=== PATIENT | female | born 1985 | race Caucasian/White ===

== ENCOUNTER 2016-06-05 09:25 | Inpatient (IN) ==
[2016-06-05] MEDS ORDERED: ONDANSETRON 4 MG/2 ML VIAL IV STA (10:53)
[2016-06-05] MEDS ORDERED: PANTOPRAZOLE 40 MG VIAL IV STA (10:53)
[2016-06-05] MEDS ORDERED: HYDROmorphone 2 MG/1 ML VIAL IV STA (10:53)
[2016-06-05] MEDS ORDERED: SODIUM CHLORIDE 0.9% 1,000 ML IV STA (10:53)
[2016-06-05] MEDS ORDERED: PANTOPRAZOLE 40 MG VIAL IV ONE (11:11)
[2016-06-05] MEDS ORDERED: ONDANSETRON 4 MG/2 ML VIAL ONE (11:11)
[2016-06-05] MEDS ORDERED: HYDROmorphone 2 MG/1 ML VIAL ONE (11:11)
--- NOTE | 2016-06-05 11:12 | Emergency Department Note ---
Mary Suarez Brittany, am scribing for, and in the presence of, Eduardo Mann MD 11:02. Mackenzie Suarez Charles R, MD, personally performed the services described in this documentation, ascribed by Heather Hernandez in my presence, and it is both accurate and complete . Arrival - Arrival Chief Complaint: Abdominal / Flank Pain Stated Complaint: SEVERE STOMACH CRAMPS, DIZZY,VOMITING, BLEEDING ED Nursing Triage Note: c/o n/v/d onset last night. +abd cramping. also bloody diarrhea. Mode of Arrival: Ambulatory Limitations: No Limitations Source: Patient Time Seen by Provider: 06/05/16 10:35 - History of Present Illness HPI Narrative: This is a 31 y/o white female,who presents to the ED with c/po severe abd cramping which started last night. She states she has had at least 20 BM since last night. She has vomited as well. She noticed bright red blood in her stool as well. She states this has never happened before. She denies any fever or body aches. She denies any Hx of abd problems such as colitis or hemorrhoids. She states she does not take any blood thinners or anti-inflammatories. Pt has no other complaints/pain in the ED at this time. Pt has a PMHx of HTN, dyslipidemia, and GERD. Pt denies a surgical Hx. Pt denies a family medical Hx. Onset (ago): hour(s) (Started last night) Consistency: constant Severity: severe Date of Last Menstrual Period: hyst Allergies/Adverse Reactions: Allergies Allergy/AdvReac Type Severity Reaction Status Date / Time Sulfa (Sulfonamide Allergy Unknown/Unable Verified 06/05/16 09:31 Antibiotics) to obtain Home Medications: Home Medications Medication Instructions Recorded Confirmed Type Fenofibrate Nanocrystallized 48 mg PO DAILY 06/05/16 06/05/16 History [Fenofibrate] Lansoprazole [Prevacid] 15 mg PO DAILY 06/05/16 06/05/16 History Levomilnacipran Hydrochloride 40 mg PO DAILY 06/05/16 06/05/16 History [Fetzima] Lisinopril [Prinivil] 10 mg PO DAILY 06/05/16 06/05/16 History Review of System - Review of System 12 point system: reviewed and no additional remarkable complaints except as stated - Review of System Constitutional: Absent: fever Gastrointestinal: Present: abdominal pain, nausea, vomiting, diarrhea, hematochezia Medical,Surgical,& Family Hx - Medical History Cardio: History of: Hypertension Endocrine: History of: Dyslipidemia Gastrointestinal: History of: GERD - Social History Smoking Status: Smoker, status unknown Frequency of Alcohol Use: None Type of Drug Use: None Exam Vital Signs: Vital Signs Temperature 97.3 F L 06/05/16 09:29 Pulse Rate 96 H 06/05/16 09:29 Respiratory Rate 18 06/05/16 09:29 Blood Pressure 138/99 06/05/16 09:29 O2 Sat by Pulse Oximetry 98 06/05/16 09:29 - General General appearance: alert, in no apparent distress - Head Head exam: Present: atraumatic, normocephalic, normal inspection - Eye Eye exam: Present: normal appearance, PERRL, EOMI - ENT ENT exam: Present: normal exam, normal oropharynx, mucous membranes moist - Neck Neck exam: Present: normal inspection, full ROM, trachea midline. Absent: tenderness, thyromegaly - Chest Chest inspection: Present: normal inspection, symmetric chest wall rise. Absent : tenderness, abscess - Respiratory Respiratory exam: Present: normal lung sounds bilaterally. Absent: rales, respiratory distress, rhonchi, stridor, wheezes - Cardiovascular Cardiovascular exam: Present: tachycardia, normal heart sounds - Abdominal Exam Abdominal exam: Present: soft, tenderness (Diffuse abd tenderness, more so on the left side), hyperactive bowel sounds. Absent: distention, guarding, rebound , rigidity - Rectal Exam Rectal exam: Present: heme (+) stool - Extremities Exam Extremities exam: Present: normal inspection, full ROM, normal capillary refill. Absent: tenderness, pedal edema, calf tenderness - Back Exam Back exam: Present: normal inspection, full ROM. Absent: tenderness, muscle spasm, rashes - Neurological Exam Neurological exam: Present: alert, oriented X3, CN II-XII intact - Psychiatric Psychiatric exam: Present: normal affect, normal mood. Absent: agitated, anxious - Skin Skin exam: Present: warm, intact, normal color. Absent: diaphoresis Course - Consultations Consultation #1: Hospitalist will admit patient Time: 13:37 Results - Labs CBC & BMP: 06/05/16 10:51 06/05/16 Unknown - Diagnostic Findings Procedure: Abdominal x-ray: report reviewed by me (1. Minimal reactive bowel in the right upper quadrant no other abnormalities are clearly delineated. ), CT Abdomen and Pelvis: report reviewed by me (1. Moderate colitis involving a relatively long segment of the colon beginning at the mid transverse colon and extending to the junction between the descending and rectosigmoid segemtn. No diverticulosisfree fluid or free air. Differential is infection versus inflammatory bowel disease. 2. Scattered hypondensitites within the spleen, likely hemangiomata. ) Disposition Clinical Impression: Gastroenteritis, Colitis, GI bleed, Abdominal pain Case discussed with: patient, patient's family Disposition: Still a Patient Condition: Stable Time of Disposition: 13:38
[2016-06-05 11:21] LABS: Apearance,Urine Slightly Hazy (Clear); Bacteria,Urine Many /HPF (Few); Bilirubin,Urine Negative (Negative); Blood, Urine Negative (Negative); Glucose,Urine (UA) Negative (Negative); Ketones,Urine Negative (Negative); Mucus,Urine Occasional /LPF (Occasional); Nitrite,Urine Negative (Negative); Protein,Urine Negative; RBC,Urine <1 /HPF (0-4); Squamous Epithelial Cell,Urine Occasional /HPF (0-10); Urine Color Yellow (Yellow); Urine Specific Gravity 1.017 (1.001-1.035); Urine Urobilinogen < 2.0 EU/DL (0.2-1.0); WBC,Urine 1 /HPF (0-6)
[2016-06-05 11:36] LABS: Basophils # 0.1 10*3/uL (0.0-0.2); Basophils % 0.4 % (0.0-0.8); Eosinophils # 0.1 10*3/uL (0.0-0.87); Eosinophils % 0.8 % (0.00-10.9); Hematocrit 41.3 VOL% (35.7-47.0); Hemoglobin 13.2 GM/DL (12.0-16.0); Immature Granulocytes % 0.5 %; Immature Granulocytes Absolute 0.07 #; Lymphocytes # 2.1 10*3/uL (1.4-4.0); Lymphocytes % 15.8 % (21.3-54.2); Mean Corpuscular Hemoglobin 28 PG (27-34); Mean Corpuscular Volume 87.5 FL (87-102); Mean Platelet Volume 11.6 FL (9.6-12.0); Monocytes # 0.7 10*3/uL (0.11-0.8); Monocytes % 5.1 % (1.7-12.7); Neutrophils # 10.2 10*3/uL (1.4-7.4); Neutrophils % 77.4 % (38.7-73.9); Platelet Count 239 10*3/uL (130-400); Red Blood Count 4.72 10*6/uL (3.8-5.5); White Blood Count 13.2 10*3/uL (4.5-13.71)
--- NOTE | 2016-06-05 11:48 | CT Report ---
CT abdomen pelvis w con Indication: Abdominal and pelvic pain. CT ABDOMEN AND PELVIS WITH CONTRAST DLP: 2378 mGy*cm Comparison: None Technique: Axial CT images of the abdomen and pelvis were obtained with IV contrast; Omnipaque 350, 100 cc. Oral contrast was not administered. Abdomen: Mild inflammation tracks along the colon from the midtransverse segment through the transition between the descending and rectosigmoid segment. The segment of colon is mildly thickwalled appearing, edematous, and decompressed. Downstream, the rectosigmoid colon is decompressed but appears unremarkable. Upstream, the cecum and ascending colon are unremarkable as well. No small bowel dilatation present. No free fluid, free air or lymphadenopathy. The heart size is normal. Liver, gallbladder, pancreas, adrenal glands and kidneys are within normal limits. There are some scattered hypodensities within the spleen that are difficult to further characterize but wash-in on delayed imaging. Suspect hemangioma. Dependent atelectasis involves the lung bases. Pelvis: Urinary bladder is contracted. Uterus and adnexal structures appear surgically absent. As stated above, rectosigmoid colon is unremarkable. Impression: 1. Moderate colitis involving a relatively long segment of the colon beginning at the mid transverse colon and extending to the junction between the descending and rectosigmoid segment. No diverticulosis, free fluid or free air. Differential is infection versus inflammatory bowel disease. 2. Scattered hypodensities within the spleen, likely hemangiomata. PROCEDURE INTERPRETED AT [facility] DEPARTMENT OF RADIOLOGY Final Report Signed by: Travis Melendez M.D.
[2016-06-05 12:13] LABS: Lactic Acid 1.3 MMOL/L (0.4-2.0)
[2016-06-05 12:15] LABS: Alanine Aminotransferase 32 U/L (13-56); Albumin 3.9 G/DL (3.4-5.0); Alkaline Phosphatase 57 U/L (45-117); Amylase 26 U/L (25-115); Aspartate Amino Transferase 18 U/L (0-37); Blood Urea Nitrogen 9 MG/DL (7-18); Calcium 9.3 MG/DL (8.5-10.1); Glucose 90 MG/DL (74-106); Magnesium 2.1 MG/DL (1.8-2.4); Osmolality,Calculated 279.3 MOS/KG (273-304); Potassium 3.7 MMOL/L (3.5-5.1); Sodium 141 MMOL/L (136-145); Total Protein 7.6 G/DL (6.4-8.3); Troponin I Only < 0.015 NG/ML (0.00-0.045)
--- NOTE | 2016-06-05 12:59 | XRay Report ---
Exam: XR abdomen 2V Date: 06/05/2016 10:54 AM Indication: Abdominal pain Comparison: None Technical:Supine and erect imaging post CT imaging Findings: The liver shadow is unremarkable. The spleen shadow is faintly seen. The kidneys reveal normal excretion. A nonspecific GI pattern is present. A few dilated loops of bowel are present right upper quadrant. Contrast is present in the bladder. The bony structures are unremarkable. Impression: 1. Minimal reactive bowel in the right upper quadrant no other abnormalities are clearly delineated. PROCEDURE INTERPRETED AT [facility] DEPARTMENT OF RADIOLOGY Final Report Signed by: Dr. Jose Finney
[2016-06-05] MEDS ORDERED: metroNIDAZOLE INJ 500 MG in PREMIX 1 EACH IV STA (13:41)
[2016-06-05] MEDS ORDERED: CIPROFLOXACIN INJ 400 MG in PREMIX 1 EACH IV STA (13:41)
[2016-06-05] MEDS ORDERED: ONDANSETRON 4 MG/2 ML VIAL IV PRN (14:22)
[2016-06-05] MEDS ORDERED: MORPHINE 2 MG/1 ML SYRINGE IV PRN (14:22)
[2016-06-05] MEDS ORDERED: ZALEPLON 5 MG CAPSULE PO PRN (14:22)
[2016-06-05] MEDS ORDERED: MAGNESIUM SULF RIDER 2 GM in PREMIX 1 EACH IV PRN (14:22)
[2016-06-05] MEDS ORDERED: POTASSIUM CHLORIDE RIDER 10 MEQ in PREMIX 1 EACH IV PRN (14:22)
[2016-06-05] MEDS ORDERED: ACETAMINOPHEN 325 MG TABLET PO PRN (14:22)
[2016-06-05] MEDS ORDERED: MAGNESIUM SULF RIDER 4 GM in PREMIX 1 EACH IV PRN (14:22)
--- NOTE | 2016-06-05 14:31 | Hospitalist History & Physical ---
Assessment and Plan (1) Colitis Status: Acute Assessment and plan: Start Cipro and Flagyl. GI consult. Aggressive fluid hydration. Stool cultures and stool studies including C. difficile. Infection versus inflammatory bowel disease. CT scan abdomen and pelvis reviewed. Current Visit: Yes (2) GI bleed Status: Acute Assessment and plan: Due to colitis. Monitor H&H. Repeat CBC in a.m. Start antibiotics. GI consult. Current Visit: Yes Qualifiers: GI bleed type/associated pathology: unspecified gastrointestinal hemorrhage type Qualified Code(s): K92.2 - Gastrointestinal hemorrhage, unspecified (3) Abdominal pain Status: Acute Current Visit: Yes History of Present Illness Chief complaint: abdominal pain, bloody diarrhea History of present illness: Ms. Posey is a 31 year old female that presented to the emergency department company by her with a one-day history of abdominal pain and diarrhea with blood. The patient's symptoms began yesterday afternoon after having dinner at a local restaurant. She reports feeling cramping abdominal pain with cold sweats. She became nauseous and started vomiting followed by diarrhea. This persisted for several hours. Last night she began having blood in her stools. She reports bright red blood per rectum. Small amounts of blood approximately a handful each time. She reports having 20 bowel movements since 10 p.m. last night. This is never happened to her before. She denies any fever or chills with the exception of the one episode of facial flushing and sweating that preceded her nausea and vomiting episode. She still has a cramping lower abdominal pain worse in the left lower quadrant and below her umbilicus. No sick contacts. Her ate dinner with her at the same restaurant and ate similar food and did not suffer any of the same symptoms. She denies any history of colitis or inflammatory bowel disease. She has never had a colonoscopy. Home Medications Medication Instructions Recorded Confirmed Type Fenofibrate Nanocrystallized 48 mg PO DAILY 06/05/16 06/05/16 History [Fenofibrate] Lansoprazole [Prevacid] 15 mg PO DAILY 06/05/16 06/05/16 History Levomilnacipran Hydrochloride 40 mg PO DAILY 06/05/16 06/05/16 History [Fetzima] Lisinopril [Prinivil] 10 mg PO DAILY 01/16/17 01/16/17 History Allergies Allergy/AdvReac Type Severity Reaction Status Date / Time Sulfa (Sulfonamide Allergy Unknown/Unable Verified 06/05/16 09:31 Antibiotics) to obtain Medical,Surgical,& Family Hx - Medical History Cardio: History of: Hypertension Psychological: History of: Depression Endocrine: History of: Dyslipidemia Gastrointestinal: History of: GERD - Surgical History HEENT Surgeries: Surgical HX of: Thyroid Surgery Reproductive Surgeries: Surgical HX of;: Hysterectomy - Family History Family History: Reports;: Family Hypertension - Social History Smoking Status: Current every day smoker Have you smoked in the last 12 months: Yes Time spent discussing smoking cessation with patient: more than 10 minutes Frequency of Alcohol Use: Rarely Type of Drug Use: None Marital Status: Lives With:: Spouse Functional capacity: independent ambulation 12 point system: reviewed and no additional remarkable complaints except as stated - Constitutional Constitutional: Present: as per HPI - Gastrointestinal Gastrointestinal: Present: abdominal pain, cramping, diarrhea, hematochezia, nausea, vomiting Exam - Constitutional Vitals: Period Temp Pulse Resp BP Sys/Johnson Pulse Ox Last 24 Hr 97.3 F 96 18 138/99 98 General appearance: no acute distress, over weight - Head Head exam: Present: normal inspection, normocephalic, atraumatic - Eye Eye exam: Present: EOMI - ENT ENT exam: Present: normal exam, normal oropharynx - Neck Neck exam: Present: normal inspection - Respiratory Respiratory exam: Present: clear to auscultation bilaterally - Cardiovascular Cardiovascular exam: Present: regular rate and rhythm - GI/Abdominal GI/Abdominal exam: Present: normal bowel sounds, tenderness (worse in the left lower quadrant.), soft. Absent: guarding, rebound - Extremities Exam Extremities exam: Present: normal inspection, full ROM. Absent: calf tenderness , edema - Neurological Exam Neurological exam: Present: alert, oriented X3 - Psychiatric Psychiatric exam: Present: normal affect, normal mood - Skin Skin exam: Present: normal color, warm, dry Results - Labs CBC & BMP: 06/05/16 10:51 06/05/16 Unknown Lab Results: I have reviewed the past 24 hour labs - Diagnostic Findings Procedure: CT Abdomen and Pelvis: report reviewed by me Quality Measures - VTE Contraindication to Pharmacological VTE Prophylaxis: Active Bleeding
[2016-06-05] MEDS ORDERED: CIPROFLOXACIN 400 MG/200 ML PREMIX IV ONE (15:03)
[2016-06-05] MEDS: CIPROFLOXACIN INJ 400 MG in PREMIX 1 EACH IV SCH (16:35)
[2016-06-05] MEDS: metroNIDAZOLE INJ 500 MG in PREMIX 1 EACH IV SCH ×2 (16:50→20:14)
[2016-06-05] MEDS: DEXTROSE 5% NACL 0.45% 1,000 ML IV SCH (16:50)
--- NOTE | 2016-06-05 17:30 | Gastrointestinal Consult Note ---
Assessment and Plan (1) Colitis Status: Acute Assessment and plan: Based on the CT scan findings and the elevated white blood cell count I suspect this patient has a underlying infectious colitis. This is her first episode at age 31 and immediately following ingestion of suspect food from a local restaurant. The nausea vomiting and diarrhea are classic for food poisoning, I suspect Salmonella or Shigella, the stool cultures are pending at this point although they may run compromised by the use of antibiotics prior to obtaining the specimen. The patient is already receiving antibiotics and I suspect she will do fine on these. We will continue to observe her over the next 24-48 hours and hopefully she can be released on oral antibiotics if she does well with the clear liquid diet. Would hesitate to start this patient on a lactose containing diet instead advance her from clears directly to lactose-free diet as tolerated. Current Visit: Yes (2) Rectal bleeding Status: Acute Assessment and plan: Again I suspect infectious colitis as the cause for this patient's elevated white count, CT scan findings, diarrhea and nausea/vomiting/abdominal pain. We need to continue to monitor the patient's white blood cell count and see how she does on a clear liquid diet over the next 24-48 hours. She might be able to be discharged if she is tolerating by mouth adequately and her symptoms defervesce with antibiotic therapy. Current Visit: Yes (3) Nausea vomiting and diarrhea Status: Acute Assessment and plan: See above. This appears to be classic food poisoning. Current Visit: Yes History of Present Illness Chief complaint: Probable infectious colitis History of present illness: Ms. 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 She had sushi as well as some steak and finished eating approximately 6 p.m. at approximately 7 p.m. she started having violent nausea and vomiting, sweats, chills and fever, with the initiation of some 20 bowel movements a 24 hour period many of these becoming bloody. This was cramping through her bilateral lower quadrants mostly in the left lower abdomen. She was not having any hematemesis. She drinks city water and does not have any amphibian's reptiles as pets. She has not had any recent travel. We else at the restaurant became sick as she did. Her white blood cell count is mildly elevated at 13.2. Her stools are being checked currently for standard stool cultures. She was given an initial dose of Cipro and Flagyl that is now on the Cipro exclusively/appropriately. I suspect she may have Salmonella or Shigella. CT scan does show which appears to be affecting mainly transverse and down to the descending and rectosigmoid region. Stools are now frankly bloody mucus only. She denies a family history of inflammatory bowel disease. She is outside of the usual range for contraction of this disorder. Although she does smoke occasionally presents one quarter to half pack per day but does not take any control pills or any other agents that would be procoagulants. Home Medications Medication Instructions Recorded Confirmed Type Fenofibrate Nanocrystallized 48 mg PO DAILY 06/05/16 06/05/16 History [Fenofibrate] Lansoprazole [Prevacid] 15 mg PO DAILY 06/05/16 06/05/16 History Levomilnacipran Hydrochloride 40 mg PO DAILY 06/05/16 06/05/16 History [Fetzima] Lisinopril [Prinivil] 10 mg PO DAILY 06/05/16 06/05/16 History Allergies Allergy/AdvReac Type Severity Reaction Status Date / Time Sulfa (Sulfonamide Allergy Unknown/Unable Verified 06/05/16 09:31 Antibiotics) to obtain Medical,Surgical,& Family Hx - Medical History Cardio: History of: Hypertension Psychological: History of: Depression Endocrine: History of: Dyslipidemia Gastrointestinal: History of: GERD - Surgical History HEENT Surgeries: Surgical HX of: Thyroid Surgery Reproductive Surgeries: Surgical HX of;: Hysterectomy - Family History Family History: Reports;: Family Hypertension - Social History Smoking Status: Current every day smoker Frequency of Alcohol Use: Rarely Type of Drug Use: None Review of systems: Constitutional: Admits to recent fever, chills, nausea, and vomiting Eyes: Denies dry eyes, and scleral icterus HENT: Denies headaches Cardiovascular: Denies acute chest pain and claudication Respiratory: Denies shortness of breath, wheezing, and difficulty breathing, denies cough Gastrointestinal: As noted in the HPI Genitourinary: Denies dysuria and hematuria Neurologic: Denies vision loss, and loss of sensation Musculoskeletal: Denies joint swelling, joint stiffness, and muscular weakness Psychiatric: The patient admits to depression and is on antidepressants but denies damian symptoms Heme-Lymph: Denies easy bruising, lymph node enlargement or tenderness, night sweats, excessive bleeding Allergies-immunologic: Denies pruritus and rhinorrhea Exam - Constitutional Vitals: Period Temp Pulse Resp BP Sys/Johnson Pulse Ox Last 24 Hr 80 16 115/76 98 General appearance: mild distress - Eye Eye exam: Present: EOMI Pupils: Present: GABY - Respiratory Respiratory exam: Present: clear to auscultation bilaterally. Absent: rhonchi, stridor, wheezes - Cardiovascular Cardiovascular exam: Present: regular rate and rhythm. Absent: bradycardia - GI/Abdominal GI/Abdominal exam: Present: normal bowel sounds, tenderness (bilateral lower quadrant left greater than right), soft. Absent: distended, guarding, rebound - Extremities Exam Extremities exam: Present: normal inspection. Absent: edema - Neurological Exam Neurological exam: Present: alert, oriented X3, CN II-XII intact. Absent: altered, motor sensory deficit - Psychiatric Psychiatric exam: Present: normal affect, normal mood - Skin Skin exam: Present: warm Results - Labs CBC & BMP: 06/05/16 10:51 06/05/16 Unknown Quality Measures - VTE Contraindication to Pharmacological VTE Prophylaxis: Active Bleeding
[2016-06-06] MEDS: CIPROFLOXACIN INJ 400 MG in PREMIX 1 EACH IV SCH (01:38)
[2016-06-06] MEDS: metroNIDAZOLE INJ 500 MG in PREMIX 1 EACH IV SCH ×2 (01:39→08:30)
[2016-06-06] MEDS: DEXTROSE 5% NACL 0.45% 1,000 ML IV SCH ×3 (01:40→23:46)
[2016-06-06 06:39] LABS: Basophils # 0.1 10*3/uL (0.0-0.2); Basophils % 0.5 % (0.0-0.8); Eosinophils # 0.1 10*3/uL (0.0-0.87); Eosinophils % 1.4 % (0.00-10.9); Hematocrit 37.5 VOL% (35.7-47.0); Immature Granulocytes % 0.5 %; Immature Granulocytes Absolute 0.05 #; Lymphocytes % 19.6 % (21.3-54.2); Mean Corpuscular Hemoglobin 28 PG (27-34); Mean Corpuscular Volume 87.8 FL (87-102); Mean Platelet Volume 11.3 FL (9.6-12.0); Monocytes # 0.6 10*3/uL (0.11-0.8); Monocytes % 5.8 % (1.7-12.7); Neutrophils # 7.2 10*3/uL (1.4-7.4); Neutrophils % 72.2 % (38.7-73.9); Platelet Count 205 10*3/uL (130-400); Red Blood Count 4.27 10*6/uL (3.8-5.5)
[2016-06-06 07:08] LABS: Calcium 8.5 MG/DL (8.5-10.1); Potassium 3.9 MMOL/L (3.5-5.1)
--- NOTE | 2016-06-06 07:34 | Hospitalist Progress Note ---
Assessment and Plan (1) Colitis Status: Acute Assessment and plan: On ciprofloxacin and metronidazole Current Visit: Yes Hospitalist: Subjective Interval history: 31 yo female presenting with hematochezia with abdominal cramping with CT abdomen demonstrating diffuse inflammatory changes beginning in the transverse colon and extending to area of the rectosigmoid. Stool with WBC and negative C difficile. Still with liquid bowel movements with blood and cramping predominately left lower quadrant pain. Afebrile overnight. Exam - Constitutional Vitals: Period Temp Pulse Resp BP Sys/Johnson Pulse Ox Last 24 Hr 97 F-99.8 F 75-84 16-19 115-120/57-76 95-100 General appearance: over weight - Respiratory Respiratory exam: Present: clear to auscultation bilaterally. Absent: rales, rhonchi, wheezes - Cardiovascular Cardiovascular exam: Present: regular rate and rhythm - GI/Abdominal GI/Abdominal exam: Present: hypoactive bowel sounds, tenderness. Absent: rebound - Extremities Exam Extremities exam: Absent: edema - Neurological Exam Neurological exam: Present: alert, oriented X3 Results - Labs CBC & BMP: 06/06/16 06:05 06/06/16 06:05 Quality Measures - VTE Contraindication to Pharmacological VTE Prophylaxis: Active Bleeding
[2016-06-06] MEDS: PANTOPRAZOLE 40 MG TABLET PO SCH (08:30)
[2016-06-06] MEDS: LISINOPRIL 10 MG TABLET PO SCH (08:30)
[2016-06-06] MEDS ORDERED: LEVOMILNACIPRAN HYDROCHLORIDE 40 MG PO SCH (09:00)
--- NOTE | 2016-06-06 09:08 | Gastrointestinal Progress Note ---
Assessment and Plan (1) Colitis Status: Acute Assessment and plan: Based on the CT scan findings and the elevated white blood cell count I suspect this patient has a underlying infectious colitis. This is her first episode at age 31 and immediately following ingestion of suspect food from a local restaurant. The nausea vomiting and diarrhea are classic for food poisoning, I suspect Salmonella or Shigella, the stool cultures are pending at this point although they may run compromised by the use of antibiotics prior to obtaining the specimen. The patient is already receiving antibiotics and I suspect she will do fine on these. We will continue to observe her over the next 24-48 hours and hopefully she can be released on oral antibiotics if she does well with the clear liquid diet. Would hesitate to start this patient on a lactose containing diet instead advance her from clears directly to lactose-free diet as tolerated. 06/06/15-- The patient's white blood cell count has improved, stool showed many white blood cells consistent with infectious colitis, culture is pending. I suspect Salmonella versus Shigella versus Campylobacter. The patient currently is on a combination of Cipro and Flagyl and appears to be doing good deal better. Since she was able tolerate her clear liquid diet I will advance her to by mouth and switch her over to a low lactose diet. We will see if she can tolerate the oral Cipro and Flagyl, if so likely she can be discharged tomorrow morning. Current Visit: Yes (2) Rectal bleeding Status: Acute Assessment and plan: Again I suspect infectious colitis as the cause for this patient's elevated white count, CT scan findings, diarrhea and nausea/vomiting/abdominal pain. We need to continue to monitor the patient's white blood cell count and see how she does on a clear liquid diet over the next 24-48 hours. She might be able to be discharged if she is tolerating by mouth adequately and her symptoms defervesce with antibiotic therapy. 06/06/16--Despite the patient's bright red blood per rectum she has only dropped her hematocrit approximately 1 unit of blood. Suspect this is secondary to the infectious process. This does not seem like an ischemic colitis, she continues to defervesce with antibiotics I don't think a colonoscopy will be necessary. Clinical picture is characteristic of infectious colitis. Current Visit: Yes (3) Nausea vomiting and diarrhea Status: Acute Assessment and plan: See above. This appears to be classic food poisoning/infectious colitis. Current Visit: Yes Gastroenterology - PN: Subj Interval history: Patient's white blood cell count has come down from 13,000-->10,000 with the antibiotics given, no stools over the evening time but 2 more bowel movements this morning still mucous and blood mixed. She is tolerating her clear liquids quite well and her cramping is improved overall. It is not constant but when it does come it is severe sometimes up to an 8 out of 10 in intensity. Exam (Progress Note) - Constitutional Vitals: Period Temp Pulse Resp BP Sys/Johnson Pulse Ox Last 24 Hr 97 F-99.8 F 75-84 16-19 115-120/57-76 95-100 General appearance: mild distress - Head Head exam: Present: normocephalic - Eye Eye exam: Present: EOMI Pupils: Present: GABY - Neck Neck exam: Present: normal inspection - Respiratory Respiratory exam: Present: clear to auscultation bilaterally. Absent: rhonchi, wheezes - Cardiovascular Cardiovascular exam: Present: regular rate and rhythm - GI/Abdominal GI/Abdominal exam: Present: normal bowel sounds, tenderness (very mild bilateral lower quadrant pain left greater than right), soft. Absent: distended , guarding - Extremities Exam Extremities exam: Present: normal inspection - Neurological Exam Neurological exam: Present: alert, oriented X3, CN II-XII intact. Absent: motor sensory deficit - Psychiatric Psychiatric exam: Present: normal affect, normal mood - Skin Skin exam: Present: warm Results - Labs CBC & BMP: 06/06/16 06:05 06/06/16 06:05
[2016-06-06] MEDS: metroNIDAZOLE 500 MG TABLET PO SCH ×2 (14:14→21:16)
[2016-06-06] MEDS: CIPROFLOXACIN 500 MG TABLET PO SCH (21:16)
[2016-06-07] MEDS: DEXTROSE 5% NACL 0.45% 1,000 ML IV SCH ×3 (01:36→07:00)
--- NOTE | 2016-06-07 06:30 | Physician Query Form ---
CLICK EDIT DOCUMENT TO SELECT QUERY ANSWER --> OK --> SIGN Mita Gomez RN, CCDS Certified Clinical Grooving Lathe Tender W) [phone] (f) [phone] [email or web address] PROVIDERS: Make your selection(s) from the choices in EACH section by typing an "x" and enter comments in the comment section. Please use your independent medical judgment in providing your response. This request does not imply that any particular answer is desired or expected. CLINICAL INDICATORS: (Providers should not edit this section) Height: BMI of 43.3 and the Ht. 5'6'' --- 268 lb 8 oz. Weight: BMI of 43.3 and the Ht. 5'6'' --- 268 lb 8 oz. Cook Ship BMI: BMI of 43.3 and the Ht. 5'6'' --- 268 lb 8 oz. Tacking Machine Operator Notes: Cook Ship Recommendations: The medical record indicates that the patient was admitted with suspected infectious colitis, BMI of 43.3 and the Ht. 5'6'' --- 268 lb 8 oz. If applicable, please provide an associated diagnosis related to the abnormal BMI: BMI of 40 or greater: (x ) Overweight ( ) Obesity ( ) Morbid//Severe Obesity ( ) Obesity with Alveolar Hypoventilation ( ) Weight Gain ( ) BMI is not significant ( ) Other, please specify: ( ) Clinically unable to determine COMMENTS: Use of terms such as suspected, likely, or probable (associated with a specific diagnosis that is being evaluated, monitored, or treated as if it exists) are acceptable and can be restated in the discharge summary if not ruled out. MTDD
[2016-06-07] MEDS: metroNIDAZOLE 500 MG TABLET PO SCH (06:57)
[2016-06-07 07:30] VITALS: BP 124/88
--- NOTE | 2016-06-07 08:15 | Discharge Summary ---
Hospital Course - Hospital Course Hospital Course: 31 yo female presenting with picture of dysenteric illness with inflammatory changes in the colon on CT imaging. Stool negative for C difficile with culture pending. Rapid clinical response with transition to oral regimen. To complete outpatient course of antibiotics with lactose restricted diet. Diagnosis - Discharge Diagnosis (1) Colitis Status: Acute Discharge Plan - Discharge Data Disposition: Disch To Home/Self Care Condition at Discharge: Stable Discharge Diet: advance to your usual diet - Discharge Medications New Ciprofloxacin Tab [Cipro Tab] 500 mg PO Q12HR #14 tablet metroNIDAZOLE TAB [Flagyl Cap/Tab] 500 mg PO Q8HR #21 tablet Continue Levomilnacipran Hydrochloride [Fetzima] 40 mg PO DAILY Fenofibrate Nanocrystallized [Fenofibrate] 48 mg PO DAILY Lisinopril [Prinivil] 10 mg PO DAILY Lansoprazole [Prevacid] 15 mg PO DAILY - Follow Up or Referral - Forms/Instructions Exam - Constitutional Vitals: Period Temp Pulse Resp BP Sys/Johnson Pulse Ox Last 24 Hr 97.4 F-99.3 F 67-87 17-20 91-128/49-88 95-98 Discharge Results Procedures and tests throughout hospitalization: Pending Orders 06/05/16 17:20 Parasitic Examination Stat DS: Provider Date of admission: 06/05/16 14:22 Primary care physician: Jose Flynn Attending physician on admission: Levi Sutton MD Consults: 06/05/16 14:34 Consult to Pharmacy [CONS] Routine Reason for Pharmacy Consult: Adjust Meds Renal Funct Discharging clinician: Presley Pereira MD Expected date of discharge: 06/07/16
--- NOTE | 2016-06-07 09:16 | Gastrointestinal Progress Note ---
Assessment and Plan (1) Colitis Status: Acute Assessment and plan: Based on the CT scan findings and the elevated white blood cell count I suspect this patient has a underlying infectious colitis. This is her first episode at age 31 and immediately following ingestion of suspect food from a local restaurant. The nausea vomiting and diarrhea are classic for food poisoning, I suspect Salmonella or Shigella, the stool cultures are pending at this point although they may run compromised by the use of antibiotics prior to obtaining the specimen. The patient is already receiving antibiotics and I suspect she will do fine on these. We will continue to observe her over the next 24-48 hours and hopefully she can be released on oral antibiotics if she does well with the clear liquid diet. Would hesitate to start this patient on a lactose containing diet instead advance her from clears directly to lactose-free diet as tolerated. 06/06/16-- The patient's white blood cell count has improved, stool showed many white blood cells consistent with infectious colitis, culture is pending. I suspect Salmonella versus Shigella versus Campylobacter. The patient currently is on a combination of Cipro and Flagyl and appears to be doing good deal better. Since she was able tolerate her clear liquid diet I will advance her to by mouth and switch her over to a low lactose diet. We will see if she can tolerate the oral Cipro and Flagyl, if so likely she can be discharged tomorrow morning. 06/07/16-- the patient is doing better, and stool studies show no evidence of Shigella, we are waiting for the final read. She is doing adequately on a solid diet which is low lactose. I've reminded her that she needs to be on this for the next 1-2 weeks. She is going to be discharged today. She will need to be off of work until next Sunday. Current Visit: Yes (2) Rectal bleeding Status: Acute Assessment and plan: Again I suspect infectious colitis as the cause for this patient's elevated white count, CT scan findings, diarrhea and nausea/vomiting/abdominal pain. We need to continue to monitor the patient's white blood cell count and see how she does on a clear liquid diet over the next 24-48 hours. She might be able to be discharged if she is tolerating by mouth adequately and her symptoms defervesce with antibiotic therapy. 06/06/16--Despite the patient's bright red blood per rectum she has only dropped her hematocrit approximately 1 unit of blood. Suspect this is secondary to the infectious process. This does not seem like an ischemic colitis, she continues to defervesce with antibiotics I don't think a colonoscopy will be necessary. Clinical picture is characteristic of infectious colitis. 06/07/16-- No repeat CBC today no further rectal bleeding. Patient is to be discharged today-- she can follow-up with me as needed Current Visit: Yes (3) Nausea vomiting and diarrhea Status: Acute Assessment and plan: See above. This appears to be classic food poisoning/infectious colitis. Current Visit: Yes Gastroenterology - PN: Subj Interval history: The patient has a some low-grade pain residual in her bilateral lower quadrants , but her diarrhea is markedly improved Exam (Progress Note) - Constitutional Vitals: Period Temp Pulse Resp BP Sys/Johnson Pulse Ox Last 24 Hr 97.4 F-99.3 F 67-87 17-20 91-128/49-88 95-98 General appearance: no acute distress - Head Head exam: Present: normocephalic, atraumatic - Eye Eye exam: Present: EOMI - ENT ENT exam: Present: normal exam - Respiratory Respiratory exam: Present: clear to auscultation bilaterally - GI/Abdominal GI/Abdominal exam: Present: normal bowel sounds, rebound, soft. Absent: distended, tenderness - Neurological Exam Neurological exam: Present: alert, oriented X3, CN II-XII intact. Absent: motor sensory deficit - Psychiatric Psychiatric exam: Present: normal affect, normal mood - Skin Skin exam: Present: warm Results - Labs CBC & BMP: 06/06/16 06:05 06/06/16 06:05 Specialty Discharge - Follow Up or Referrals
[2016-06-07] MEDS: CIPROFLOXACIN 500 MG TABLET PO SCH (09:27)
[2016-06-07] MEDS: LISINOPRIL 10 MG TABLET PO SCH (09:27)
[2016-06-07] MEDS: PANTOPRAZOLE 40 MG TABLET PO SCH (09:27)
== END 2016-06-07 11:32 | disposition home or self-care (01) | DRG 392 ==
LOC: N.ED 09:25 → N.EDINP 14:22 → N.5E 15:35
PROVIDERS: ADMIT Family Medicine; ATTEND Family Medicine

== ENCOUNTER 2021-05-12 12:04 | Observation (INO) ==
[2021-05-12] MEDS ORDERED: SODIUM CHLORIDE 0.9% 1,000 ML IV STA (15:30)
[2021-05-12] MEDS ORDERED: KETOROLAC 30 MG/1 ML VIAL IV STA (15:44)
[2021-05-12] MEDS ORDERED: ONDANSETRON 4 MG/2 ML VIAL IV STA (15:44)
[2021-05-12 15:49] LABS: Basophils # 0.1 10*3/uL (0.0-0.2); Basophils % 0.4 % (0.0-0.8); Eosinophils % 0.1 % (0.00-10.9); Hematocrit 44.9 VOL% (35.7-47.0); Hemoglobin 14.5 GM/DL (12.0-16.0); Immature Granulocytes % 0.7 %; Immature Granulocytes Absolute 0.14 #; Lymphocytes % 5.5 % (21.3-54.2); Mean Corpuscular HGB Conc 32.3 GM/DL (32-36); Mean Corpuscular Volume 93.5 FL (87-102); Mean Platelet Volume 10.9 FL (9.6-12.0); Monocytes % 3.3 % (1.7-12.7); Platelet Count 257 T/CUMM (130-400); Red Cell Distribution Width 12.7 % (9.3-17.3); White Blood Count 18.9 T/CUMM (4-12)
[2021-05-12 15:58] LABS: Amorphous Crystals,Urine Occasional /HPF (Few); Bacteria,Urine Occasional /HPF (Few); Bilirubin,Urine Negative (Negative); Blood, Urine Negative (Negative); Glucose,Urine (UA) Negative (Negative); Ketones,Urine 20 mg/dL (Negative); Mucus,Urine Occasional /LPF (Occasional); Nitrite,Urine Negative (Negative); Protein,Urine Negative; Squamous Epithelial Cell,Urine Occasional /HPF (0-10); Urine Appearance Slightly Hazy (Clear); Urine Color Yellow (Yellow); Urine Specific Gravity 1.021 (1.001-1.035); Urine Urobilinogen < 2.0 EU/DL (<2.0)
[2021-05-12 16:07] LABS: Albumin 3.8 G/DL (3.4-5.0); Bilirubin,Total 0.7 MG/DL (0.20-1.00); Calcium 9.4 MG/DL (8.5-10.1); Osmolality,Calculated 284.3 MOS/KG (273-304); Potassium 4.2 MMOL/L (3.5-5.1); Total Protein 7.6 G/DL (6.4-8.2)
[2021-05-12] MEDS ORDERED: hydrALAZINE 20 MG/1 ML VIAL IV PRN (17:52)
[2021-05-12] MEDS ORDERED: ONDANSETRON 4 MG/2 ML VIAL IV PRN (17:53)
[2021-05-12] MEDS ORDERED: GLUCAGON 1 MG VIAL IM PRN (17:53)
[2021-05-12] MEDS ORDERED: ENOXAPARIN 40 MG/0.4 ML SYRINGE SUBCUT SCH (18:00)
[2021-05-12] MEDS ORDERED: DEXTROSE 50% 25 GM/50 ML SYRINGE IV PRN (18:17)
[2021-05-12] MEDS: SODIUM CHLORIDE 0.9% 1,000 ML IV SCH (21:38)
[2021-05-12] MEDS: KETOROLAC 30 MG/1 ML VIAL IV PRN (21:45)
[2021-05-12] MEDS: PIPERACILLIN/TAZOBACTAM 3,375 MG in SODIUM CHLORIDE 0.9% 100 ML IV SCH (21:48)
[2021-05-13] MEDS: PIPERACILLIN/TAZOBACTAM 3,375 MG in SODIUM CHLORIDE 0.9% 100 ML IV SCH ×3 (05:02→21:23)
[2021-05-13 06:47] LABS: Albumin 3.2 G/DL (3.4-5.0); Bilirubin,Total 1.7 MG/DL (0.20-1.00); Calcium 8.7 MG/DL (8.5-10.1); Osmolality,Calculated 280.4 MOS/KG (273-304); Potassium 3.7 MMOL/L (3.5-5.1); Thyroid Stimulating Hormone 0.893 uIU/ml (0.358-3.74); Total Protein 6.9 G/DL (6.4-8.2)
[2021-05-13 07:10] LABS: Basophils # 0.1 10*3/uL (0.0-0.2); Basophils % 0.4 % (0.0-0.8); Eosinophils # 0.1 10*3/uL (0.0-0.87); Eosinophils % 0.4 % (0.00-10.9); Hematocrit 38.6 VOL% (35.7-47.0); Hemoglobin 12.5 GM/DL (12.0-16.0); Immature Granulocytes % 0.5 %; Immature Granulocytes Absolute 0.07 #; Lymphocytes # 2.6 10*3/uL (1.4-4.0); Lymphocytes % 18.6 % (21.3-54.2); Mean Corpuscular HGB Conc 32.4 GM/DL (32-36); Mean Corpuscular Volume 94.1 FL (87-102); Mean Platelet Volume 11.5 FL (9.6-12.0); Monocytes % 6.6 % (1.7-12.7); Neutrophils % 73.5 % (38.7-73.9); Platelet Count 234 T/CUMM (130-400)
[2021-05-13] MEDS: KETOROLAC 30 MG/1 ML VIAL IV PRN ×2 (10:34→17:05)
[2021-05-13] MEDS: NICOTINE 14 MG/24 HR PATCH TRANSDERM SCH (12:16)
[2021-05-13] MEDS: SODIUM CHLORIDE 0.9% 1,000 ML IV SCH ×2 (12:17→19:03)
[2021-05-13] MEDS ORDERED: ACETAMINOPHEN 325 MG TABLET PO PRN (20:47)
[2021-05-14] MEDS: KETOROLAC 30 MG/1 ML VIAL IV PRN ×2 (00:12→05:41)
[2021-05-14] MEDS: PIPERACILLIN/TAZOBACTAM 3,375 MG in SODIUM CHLORIDE 0.9% 100 ML IV SCH (05:41)
[2021-05-14] MEDS: SODIUM CHLORIDE 0.9% 1,000 ML IV SCH (05:42)
[2021-05-14 06:41] LABS: Basophils # 0.1 10*3/uL (0.0-0.2); Basophils % 0.4 % (0.0-0.8); Eosinophils # 0.1 10*3/uL (0.0-0.87); Hematocrit 32.4 VOL% (35.7-47.0); Immature Granulocytes % 0.5 %; Immature Granulocytes Absolute 0.06 #; Lymphocytes # 1.7 10*3/uL (1.4-4.0); Lymphocytes % 13.7 % (21.3-54.2); Mean Corpuscular HGB Conc 32.4 GM/DL (32-36); Mean Corpuscular Volume 95.3 FL (87-102); Mean Platelet Volume 11.6 FL (9.6-12.0); Monocytes % 7.6 % (1.7-12.7); Neutrophils % 76.8 % (38.7-73.9); Platelet Count 173 T/CUMM (130-400); Red Cell Distribution Width 12.9 % (9.3-17.3); White Blood Count 12.1 T/CUMM (4-12)
[2021-05-14 06:43] LABS: Hemoglobin 10.5 GM/DL (12.0-16.0)
[2021-05-14 06:58] LABS: Albumin 2.5 G/DL (3.4-5.0); Bilirubin,Total 1.6 MG/DL (0.20-1.00); Osmolality,Calculated 278.3 MOS/KG (273-304); Potassium 3.5 MMOL/L (3.5-5.1)
[2021-05-14 08:56] VITALS: BP 121/63
[2021-05-14] MEDS: NICOTINE 14 MG/24 HR PATCH TRANSDERM SCH (10:09)
== END 2021-05-14 10:57 | disposition left against medical advice (07) ==
LOC: N.TELES 12:04 → N.ED 12:04 → SUATTDRO 17:53 → N.TELES 20:45
PROVIDERS: ADMIT Internal Medicine Geriatric Medicine; ATTEND Internal Medicine

== ENCOUNTER 2021-10-09 10:04 | Inpatient (IN) ==
[2021-10-09] MEDS ORDERED: SODIUM CHLORIDE 0.9% 1,000 ML IV STA (10:45)
[2021-10-09 11:28] LABS: Basophils # 0.2 10*3/uL (0.0-0.2); Basophils % 0.5 % (0.0-0.8); Hemoglobin 13.5 GM/DL (12.0-16.0); Immature Granulocytes % 5.4 %; Immature Granulocytes Absolute 1.58 #; Lymphocytes # 0.6 10*3/uL (1.4-4.0); Lymphocytes % 2.2 % (21.3-54.2); Mean Corpuscular HGB Conc 34.6 GM/DL (32-36); Mean Corpuscular Volume 94.9 FL (87-102); Mean Platelet Volume 10.2 FL (9.6-12.0); Monocytes # 0.1 10*3/uL (0.11-0.8); Monocytes % 0.4 % (1.7-12.7); Neutrophils % 91.5 % (38.7-73.9); Platelet Count 209 T/CUMM (130-400); Red Blood Count 4.11 MC/CUMM (3.8-5.5); Red Cell Distribution Width 16.5 % (9.3-17.3); White Blood Count 29.2 T/CUMM (4-12)
[2021-10-09 11:48] LABS: Lymphocytes 4 % (20-55); Reactive Lymphocytes Few; Total Cells Counted 100
[2021-10-09 11:49] LABS: Platelet Estimate Normal; Stomatocytes Few; Tear Drop Cells Few
[2021-10-09 11:50] LABS: Bacteria,Urine Occasional /HPF (Few); RBC,Urine 2 /HPF (0-4); Squamous Epithelial Cell,Urine Occasional /HPF (0-10)
[2021-10-09 11:51] LABS: Bilirubin,Urine Negative (Negative); Blood, Urine Negative (Negative); Glucose,Urine (UA) Negative (Negative); Ketones,Urine Negative (Negative); Nitrite,Urine Negative (Negative); Protein,Urine Negative (Negative); Urine Appearance Clear (Clear); Urine Color Yellow (Yellow); Urine Specific Gravity <= 1.005 (1.001-1.035); Urine Urobilinogen < 2.0 eU/dL (<2.0)
[2021-10-09 11:56] LABS: Alanine Aminotransferase 95 U/L (13-56); Albumin 3.5 G/DL (3.4-5.0); Alkaline Phosphatase 93 U/L (45-117); Amylase 54 U/L (25-115); Aspartate Amino Transferase 62 U/L (0-37); Blood Urea Nitrogen 21 MG/DL (7-18); Calcium 10.1 MG/DL (8.5-10.1); Carbon Dioxide 29 MMOL/L (21-32); Chloride 91 MMOL/L (98-107); Glucose 182 MG/DL (74-106); Osmolality,Calculated 273.4 MOS/KG (273-304); Potassium 2.9 MMOL/L (3.5-5.1); Sodium 133 MMOL/L (136-145); Total Protein 7.9 G/DL (6.4-8.2)
[2021-10-09] MEDS ORDERED: PIPERACILLIN/TAZOBACTAM 3,375 MG in SODIUM CHLORIDE 0.9% 100 ML IV STA (13:04)
[2021-10-09] MEDS ORDERED: POTASSIUM CHLORIDE RIDER 20 MEQ/100 ML PREMIX IV STA ×2 (13:13→13:27)
[2021-10-09] MEDS ORDERED: SODIUM CHLORIDE 0.9% 500 ML IV STA (13:50)
[2021-10-09] MEDS ORDERED: ACETAMINOPHEN 325 MG TABLET PO PRN (14:37)
[2021-10-09] MEDS ORDERED: DOCUSATE SODIUM 100 MG CAPSULE PO PRN (14:37)
[2021-10-09] MEDS ORDERED: GLUCAGON 1 MG VIAL IM PRN (14:37)
[2021-10-09] MEDS ORDERED: SODIUM CHLORIDE 0.9% 1,000 ML IV ONE (14:46)
[2021-10-09] MEDS ORDERED: LACTATED RINGERS 2,000 ML IV ONE (14:47)
[2021-10-09] MEDS ORDERED: POTASSIUM CHLORIDE 20 MEQ TABLET PO ONE (14:48)
[2021-10-09] MEDS ORDERED: DEXTROSE 10% 250 ML BAG IV PRN (14:55)
[2021-10-09] MEDS: metroNIDAZOLE INJ 500 MG/100 ML PREMIX IV SCH ×2 (15:21→23:25)
[2021-10-09] MEDS: LACTATED RINGERS 1,000 ML IV SCH ×2 (16:16→23:34)
[2021-10-09] MEDS: CEFEPIME 1,000 MG in SODIUM CHLORIDE 0.9% 100 ML IV SCH ×2 (16:16→21:56)
[2021-10-09] MEDS: ENOXAPARIN 40 MG/0.4 ML SYRINGE SUBCUT SCH (16:16)
[2021-10-09 17:28] LABS: Osmolality,Calculated 275.1 MOS/KG (273-304); Potassium 3.7 MMOL/L (3.5-5.1)
[2021-10-09] MEDS: ONDANSETRON 4 MG/2 ML VIAL IM PRN (20:20)
[2021-10-09] MEDS: ZALEPLON 5 MG CAPSULE PO PRN (21:49)
[2021-10-10 00:49] LABS: Bacteria,Urine Occasional /HPF (Few); RBC,Urine <1 /HPF (0-4); Squamous Epithelial Cell,Urine Occasional /HPF (0-10)
[2021-10-10 00:51] LABS: Bilirubin,Urine Negative (Negative); Blood, Urine Negative (Negative); Glucose,Urine (UA) Negative (Negative); Ketones,Urine Negative (Negative); Nitrite,Urine Negative (Negative); Protein,Urine Negative (Negative); Urine Appearance Clear (Clear); Urine Color Yellow (Yellow); Urine Urobilinogen 0.2 eU/dL (<2.0)
[2021-10-10] MEDS: CEFEPIME 1,000 MG in SODIUM CHLORIDE 0.9% 100 ML IV SCH ×2 (04:18→12:02)
[2021-10-10 04:36] LABS: Basophils # 0.2 10*3/uL (0.0-0.2); Basophils % 0.6 % (0.0-0.8); Eosinophils % 0.2 % (0.00-10.9); Hematocrit 32.5 VOL% (35.7-47.0); Hemoglobin 11.1 GM/DL (12.0-16.0); Immature Granulocytes % 9.3 %; Immature Granulocytes Absolute 2.17 #; Lymphocytes # 2.5 10*3/uL (1.4-4.0); Lymphocytes % 10.6 % (21.3-54.2); Mean Corpuscular HGB Conc 34.2 GM/DL (32-36); Mean Corpuscular Volume 94.5 FL (87-102); Mean Platelet Volume 10.4 FL (9.6-12.0); Monocytes # 0.1 10*3/uL (0.11-0.8); Monocytes % 0.6 % (1.7-12.7); Neutrophils % 78.7 % (38.7-73.9); Platelet Count 167 T/CUMM (130-400); Red Blood Count 3.44 MC/CUMM (3.8-5.5); Red Cell Distribution Width 16.4 % (9.3-17.3); White Blood Count 23.3 T/CUMM (4-12)
[2021-10-10 05:01] LABS: Eosinophils 1 % (0-10); Lymphocytes 9 % (20-55); Platelet Estimate Adequate; Total Cells Counted 100
[2021-10-10 05:03] LABS: Albumin 2.9 G/DL (3.4-5.0); Bilirubin,Total 0.6 MG/DL (0.20-1.00); Calcium 8.8 MG/DL (8.5-10.1); Osmolality,Calculated 273.8 MOS/KG (273-304); Potassium 3.1 MMOL/L (3.5-5.1); Total Protein 6.2 G/DL (6.4-8.2)
[2021-10-10] MEDS: metroNIDAZOLE INJ 500 MG/100 ML PREMIX IV SCH (06:51)
[2021-10-10] MEDS ORDERED: DEXAMETHASONE 4 MG TABLET PO SCH (09:00)
[2021-10-10] MEDS: PANTOPRAZOLE 40 MG TABLET PO SCH (09:47)
[2021-10-10] MEDS: CYANOCOBALAMIN 500 MCG TABLET PO SCH (09:47)
[2021-10-10] MEDS: LEVOFLOXACIN INJ 750 MG/150 ML PREMIX IV SCH (14:03)
[2021-10-10] MEDS: LACTATED RINGERS 1,000 ML IV SCH ×2 (14:43→15:58)
[2021-10-10] MEDS: ENOXAPARIN 40 MG/0.4 ML SYRINGE SUBCUT SCH (15:54)
[2021-10-10] MEDS ORDERED: ONDANSETRON 4 MG/2 ML VIAL IV PRN (15:59)
[2021-10-10] MEDS: ONDANSETRON 4 MG/2 ML VIAL IM PRN (16:00)
[2021-10-10] MEDS: ZALEPLON 5 MG CAPSULE PO PRN (20:56)
[2021-10-11 05:18] LABS: Basophils # 0.1 10*3/uL (0.0-0.2); Basophils % 1.2 % (0.0-0.8); Eosinophils % 0.3 % (0.00-10.9); Immature Granulocytes Absolute 0.11 #; Lymphocytes # 2.1 10*3/uL (1.4-4.0); Lymphocytes % 18.7 % (21.3-54.2); Mean Corpuscular HGB Conc 34.4 GM/DL (32-36); Mean Corpuscular Volume 94.7 FL (87-102); Mean Platelet Volume 10.3 FL (9.6-12.0); Monocytes # 0.1 10*3/uL (0.11-0.8); Monocytes % 1.1 % (1.7-12.7); Neutrophils % 77.7 % (38.7-73.9); Platelet Count 161 T/CUMM (130-400); Red Blood Count 3.38 MC/CUMM (3.8-5.5)
[2021-10-11 05:36] LABS: Calcium 9.3 MG/DL (8.5-10.1); Osmolality,Calculated 272.8 MOS/KG (273-304); Potassium 3.4 MMOL/L (3.5-5.1)
[2021-10-11 05:40] LABS: Lymphocytes 22 % (20-55); Platelet Estimate Adequate; Total Cells Counted 100
[2021-10-11] MEDS ORDERED: POTASSIUM CHLORIDE 20 MEQ TABLET PO ONE (08:01)
[2021-10-11] MEDS ORDERED: DEXAMETHASONE 10 MG/1 ML VIAL IV SCH (09:00)
[2021-10-11] MEDS ORDERED: DEXAMETHASONE 10 MG/1 ML VIAL IV ONE (09:00)
[2021-10-11] MEDS ORDERED: DEXAMETHASONE INJ 10 MG in SODIUM CHLORIDE 0.9% 50 ML IV SCH (09:00)
[2021-10-11] MEDS: CYANOCOBALAMIN 500 MCG TABLET PO SCH (09:32)
[2021-10-11] MEDS: PANTOPRAZOLE 40 MG TABLET PO SCH (09:32)
[2021-10-11 11:40] VITALS: BP 120/73
[2021-10-11] MEDS: LEVOFLOXACIN INJ 750 MG/150 ML PREMIX IV SCH (12:00)
== END 2021-10-11 14:02 | disposition home or self-care (01) | DRG 872 ==
LOC: N.ED 10:04 → N.EDINP 15:07 → SUATTDRO 15:07 → N.TELES 16:07
PROVIDERS: ADMIT Internal Medicine; ATTEND Internal Medicine Geriatric Medicine